=== PATIENT | male | born 1990 | race African-American/Black ===

== ENCOUNTER 2022-01-22 16:35 | Emergency (ER) | payer OTHER ==
[~2022-01-22] VITALS: Ht 170.2 cm; Wt 56.7 kg
--- NOTE | 2022-01-22 16:45 | NUR ---
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
[2022-01-22] MEDS ORDERED: LEVE100023 PO (16:52)
--- NOTE | 2022-01-22 17:20 | NUR ---
TECH AT BEDSIDE FOR EKG
[2022-01-22] MEDS ORDERED: LEVETIRACETAM (500MG) 500 MG in IV NS 0.9% 100 ML IV SCH (17:30)
[2022-01-22] MEDS: LEVETIRACETAM (500MG) 500 MG in IV NS 0.9% 100 ML IV ONE (18:31)
[2022-01-22 18:46] LABS: CALCIUM, SERUM 9.4 mg/dL (8.5-10.1); CARBON DIOXIDE 27 mmol/L (21-32); CHLORIDE 101 mmol/L (98-107); CREATININE 0.9 mg/dL (0.6-1.3); GLUCOSE 95 mg/dL (74-106); POTASSIUM 4.2 mmol/L (3.5-5.1); SODIUM SERUM 138 mmol/L (136-145); UREA NITROGEN, BLOOD 13 mg/dL (7-18)
[2022-01-22 18:52] LABS: ALANINE AMINOTRANSFERASE 191 U/L (12-78); ALCOHOL, BLOOD < 3 mg/dL (0-0); ALKALINE PHOSPHATASE 110 U/L (46-116); ASPARTATE AMINOTRANSFERASE 70 U/L (15-37); BILIRUBIN,DIRECT 0.1 mg/dL (0.0-0.2); BILIRUBIN,TOTAL 0.4 mg/dL (0.2-1.0); TOTAL PROTEIN, SERUM 8.5 g/dL (6.4-8.2)
[2022-01-22 19:55] LABS: BASOPHILS # (AUTO) 0.1 K/uL (0.0-0.2); BASOPHILS % (AUTO) 0.8 % (0.0-2.0); EOSINOPHILS % (AUTO) 1.1 % (0.0-6.0); HEMATOCRIT 42 % (39-51); HEMOGLOBIN 13.9 g/dL (13.5-17.5); LYMPHOCYTES # (AUTO) 2.6 K/uL (0.8-4.8); LYMPHOCYTES % (AUTO) 30.5 % (20.0-44.0); MEAN CORPUSCULAR HGB CONC 33 g/dl (31.0-36.0); MEAN CORPUSCULAR VOLUME 86 fL (80-96); MONOCYTES # (AUTO) 0.6 K/uL (0.1-1.30); MONOCYTES % (AUTO) 7.3 % (2.0-12.0); NEUTROPHILS # (AUTO) 5.1 K/uL (1.8-8.9); NEUTROPHILS % (AUTO) 60.3 % (43.0-81.0); PLATELET COUNT (AUTO) 327 K/uL (150-450); RED BLOOD CELL COUNT(AUTO) 4.91 MIL/uL (4.5-6.0); WHITE BLOOD COUNT (AUTO) 8.5 K/uL (4.3-11.0)
[2022-01-22] MEDS ORDERED: LEVE1000 PO (20:15)
--- NOTE | 2022-01-22 20:35 | NUR ---
pt is medically stable for D/C, IV removed. Catheter intact and site benign. Pressure and 4x4 applied to site. No bleeding noted.[facility] to [facility] in stable condition. Rx and Written and verbal after care instructions given. Patient verbalizes understanding of instruction.
[2022-01-22 20:37] VITALS: BP 131/66
== END 2022-01-22 20:37 ==
LOC: ER 16:38
DX: G40.909 Epilepsy, unspecified, not intractable, without status epilepticus (principal); Z79.899 Other long term (current) drug therapy
CPT/HCPCS: 99285; 96365; 93005; 72125; 70450; 85025; 80048; 80076; 36415; 82962; 80320; J7030; J1953; G0480

== ENCOUNTER 2022-01-23 16:00 | Emergency (ER) | payer SELFPAY ==
[~2022-01-23] VITALS: Ht 172.7 cm; Wt 56.7 kg
[~2022-01-23 16:00] MED LIST: LEVE1000 PO; LEVE100023 PO
[2022-01-23 19:27] LABS: CALCIUM, SERUM 9.1 mg/dL (8.5-10.1); CREATININE 0.7 mg/dL (0.6-1.3); POTASSIUM 4.6 mmol/L (3.5-5.1)
[2022-01-23 19:51] LABS: BASOPHILS # (AUTO) 0.1 K/uL (0.0-0.2); EOSINOPHILS % (AUTO) 0.8 % (0.0-6.0); HEMATOCRIT 42 % (39-51); HEMOGLOBIN 13.7 g/dL (13.5-17.5); LYMPHOCYTES # (AUTO) 2.6 K/uL (0.8-4.8); LYMPHOCYTES % (AUTO) 29.6 % (20.0-44.0); MEAN CORPUSCULAR HGB CONC 33 g/dl (31.0-36.0); MEAN CORPUSCULAR VOLUME 85 fL (80-96); MONOCYTES # (AUTO) 0.7 K/uL (0.1-1.30); MONOCYTES % (AUTO) 8.6 % (2.0-12.0); NEUTROPHILS # (AUTO) 5.2 K/uL (1.8-8.9); PLATELET COUNT (AUTO) 328 K/uL (150-450); RED BLOOD CELL COUNT(AUTO) 4.92 MIL/uL (4.5-6.0); WHITE BLOOD COUNT (AUTO) 8.7 K/uL (4.3-11.0)
--- NOTE | 2022-01-23 20:30 | NUR ---
RECEIVED THIS PATIENT FROM AM SHIFT. PATIENT IS WAITING FOR COVID RESULTS AND WILL BE DISCHARGE IN THE CUSTODY OF [employer]. [place]. VITALS CHECKED.
[2022-01-23] MEDS ORDERED: ACETAMINOPHEN ES 500 MG TABLET ONE (20:33)
[2022-01-23] MEDS: ACETAMINOPHEN ES 500 MG TABLET PO ONE (20:38)
--- NOTE | 2022-01-23 20:38 | NUR ---
[facility] Written and verbal after care instructions given. Patient verbalizes understanding of instruction. IV removed. Catheter intact and site benign. Pressure and 4x4 applied to site. No bleeding noted. PT ambulatory with a steady gait
[2022-01-23 23:12] VITALS: BP 119/81
== END 2022-01-23 23:12 ==
LOC: ER 16:07
DX: G40.909 Epilepsy, unspecified, not intractable, without status epilepticus (principal); Z79.899 Other long term (current) drug therapy
CPT/HCPCS: 36415; 80048-TC; 83605-TC; 85025-TC

== ENCOUNTER 2025-04-30 09:47 | Emergency (ER) | payer OTHER ==
[~2025-04-30] VITALS: Ht 175.3 cm; Wt 72.6 kg
[2025-04-30 11:03] VITALS: BP 115/78; TEMP 98.6; O2SAT 98
== END 2025-04-30 10:35 ==
LOC: ER 09:56
DX: Z02.89 Encounter for other administrative examinations (principal); Z79.899 Other long term (current) drug therapy